=== PATIENT | male | born 1980 | race Caucasian/White ===

== ENCOUNTER 2019-04-06 14:24 | Emergency (ER) | payer BC ==
[2019-04-06] MEDS ORDERED: Silver Sulfadiazine 1% Crm 400 GM Jar TOP ONE (15:00)
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
== END 2019-04-06 15:41 | disposition home or self-care (01) ==
LOC: JD.ED 14:24
DX: T20.23XA Burn of second degree of chin, initial encounter (principal); T20.27XA Burn of second degree of neck, initial encounter; T21.21XA Burn of second degree of chest wall, initial encounter; T20.14XA Burn of first degree of nose (septum), initial encounter; T20.12XA Burn of first degree of lip(s), initial encounter; F17.210 Nicotine dependence, cigarettes, uncomplicated; X04.XXXA Exposure to ignition of highly flammable material, initial encounter
CPT/HCPCS: 99284; A9270; 16025; 99283